=== PATIENT | male | born 1930 | race African-American/Black ===

== ENCOUNTER 2017-04-16 13:39 | Inpatient (IN) | payer OTHER ==
[~2017-04-16] VITALS: Ht 175.3 cm; Wt 93.0 kg
[2017-04-16] MEDS ORDERED: SODIUM CHLORIDE 0.9% 250 ML IV ONE (14:23)
[2017-04-16 15:01] LABS: BASOPHILS % 0.5 % (0.0-2.0); EOSINOPHILS % 10.4 % (0.0-5.0); LYMPHOCYTES % 15.4 % (20.0-50.0); MEAN CORPUSCULAR HEMOGLOBIN 29.5 pg (28.0-32.0); MEAN CORPUSCULAR VOLUME 89.3 fL (80.0-94.0); MEAN PLATELET VOLUME 8.1 fl (7.4-10.4); MONOCYTES % 6.9 % (2.0-8.0); NEUTROPHILS % 66.8 % (40.0-76.0); PLATELET 256 x1000/uL (130-400); RED BLOOD CELL COUNT 2.28 mill/uL (4.7-6.1); RED CELL DISTRIBUTION WIDTH 15.3 % (11.6-14.6)
[2017-04-16 15:03] LABS: INR 1.1
[2017-04-16 15:04] LABS: AMMONIA 23 uMol/L (<32)
[2017-04-16 15:05] LABS: HEMOGLOBIN. 6.7 g/dL (14.0-18.0)
[2017-04-16 15:08] LABS: CARBON DIOXIDE 25 mEq/L (21-32); CHLORIDE 113 mEq/L (98-107); ETHANOL BLOOD < 10 mg/dL
[2017-04-16 15:12] LABS: CREATINE KINASE 63 IU/L (39-308); TROPONIN I 0.05 ng/mL (0.00-0.04)
[2017-04-16 15:55] LABS: CLARITY URINE CLEAR (CLEAR); COLOR URINE YELLOW (YELLOW); GLUCOSE URINE NEGATIVE (NEGATIVE); KETONES URINE NEGATIVE (NEGATIVE); LEUKOCYTE ESTERASE URINE TRACE (NEGATIVE); NITRITE URINE NEGATIVE (NEGATIVE); OCCULT BLOOD URINE NEGATIVE (NEGATIVE); PROTEIN URINE NEGATIVE (NEGATIVE); SPECIFIC GRAVITY URINE 1.025 (1.005-1.030); UROBILINOGEN URINE 0.2 E.U./dL (0.2-1.0)
[2017-04-16 16:08] LABS: T4 FREE 1.59 ng/dL (0.76-1.46)
[2017-04-16 16:16] LABS: *AMPHETAMINES SCREEN URINE NEGATIVE (NEGATIVE); *BARBITURATES SCREEN URINE NEGATIVE (NEGATIVE); *BENZODIAZEPINES SCREEN URINE NEGATIVE (NEGATIVE); *COCAINE SCREEN URINE NEGATIVE (NEGATIVE); CANNABINOID URINE SCREEN NEGATIVE (NEGATIVE); METHADONE URINE SCREEN NEGATIVE (NEGATIVE); OPIATES URINE SCREEN NEGATIVE (NEGATIVE); PHENCYCLIDINE URINE SCREEN NEGATIVE (NEGATIVE)
[2017-04-16] MEDS ORDERED: ACETAMINOPHEN 325MG TABLET PO PRN (18:45)
[2017-04-16] MEDS ORDERED: ONDANSETRON HCL 4MG/2ML VIAL IV PRN (18:45)
[2017-04-16] MEDS ORDERED: IPRATROPIUM/ALBUTEROL 0.5-3(2.5)MG/3ML NEB INH PRN (18:45)
[2017-04-16 19:07] LABS: TOTAL IRON BINDING CAPACITY 271 ug/dL (250-450)
[2017-04-16] MEDS ORDERED: PANTOPRAZOLE SODIUM 40 MG/VIAL IV NR (19:56)
[2017-04-16 20:00] VITALS: BP 149/85
[2017-04-16 20:05] VITALS: BP 149/85
[2017-04-16 22:27] VITALS: BP 136/79
[2017-04-16 22:42] VITALS: BP 118/63
[2017-04-16 23:27] VITALS: BP 126/60
[2017-04-16] MEDS ORDERED: SYN200 PO (23:40)
[2017-04-16] MEDS ORDERED: METO25TA6 PO (23:40)
[2017-04-16] MEDS ORDERED: MULT-1146 PO (23:40)
[2017-04-16] MEDS ORDERED: OMEP20TA80 PO (23:40)
[2017-04-16] MEDS ORDERED: ASPI-1159 PO (23:40)
[2017-04-16] MEDS ORDERED: ATOR-2 PO (23:40)
[2017-04-16] MEDS ORDERED: LISI-604 PO (23:40)
[2017-04-17] VITALS (14 sets, daily range): BP systolic 113–149; BP diastolic 52–82
[2017-04-17] MEDS: IPRATROPIUM/ALBUTEROL 0.5-3(2.5)MG/3ML NEB HHN SCH ×3 (02:44→13:45)
[2017-04-17] MEDS ORDERED: LEVOTHYROXINE SODIUM 175MCG TABLET PO SCH (07:20)
[2017-04-17] MEDS ORDERED: LEVOTHYROXINE SODIUM 200MCG TABLET PO SCH (09:00)
[2017-04-17] MEDS ORDERED: PANTOPRAZOLE SODIUM 40 MG/VIAL IV SCH (09:00)
[2017-04-17 10:51] LABS: HEMATOCRIT. 26.3 % (42.0-52.0); HEMOGLOBIN. 8.6 g/dL (14.0-18.0); MEAN CORPUSCULAR HEMOGLOBIN 28.5 pg (28.0-32.0); MEAN CORPUSCULAR VOLUME 86.5 fL (80.0-94.0); PLATELET 212 x1000/uL (130-400); RED BLOOD CELL COUNT 3.04 mill/uL (4.7-6.1); RED CELL DISTRIBUTION WIDTH 16.1 % (11.6-14.6)
[2017-04-17 11:24] LABS: PLATELET ESTIMATE NORMAL
[2017-04-17] MEDS ORDERED: METOPROLOL TARTRATE 25MG TABLET PO SCH (12:30)
[2017-04-17 16:38] LABS: CLARITY URINE CLEAR (CLEAR); COLOR URINE YELLOW (YELLOW); GLUCOSE URINE NEGATIVE (NEGATIVE); KETONES URINE NEGATIVE (NEGATIVE); LEUKOCYTE ESTERASE URINE TRACE (NEGATIVE); NITRITE URINE NEGATIVE (NEGATIVE); OCCULT BLOOD URINE NEGATIVE (NEGATIVE); PROTEIN URINE NEGATIVE (NEGATIVE); SPECIFIC GRAVITY URINE 1.027 (1.005-1.030); UROBILINOGEN URINE 0.2 E.U./dL (0.2-1.0)
[2017-04-21 10:54] LABS: HEMATOCRIT. 20.4 % (42.0-52.0)
== END 2017-04-17 20:25 | disposition short-term general hospital (02) | DRG 378 ==
LOC: ER 14:40 → 6WST 16:07 → EDBEDREQTM 16:09 → EDBEDREQ 16:09 → ENRESERV 18:47
PROVIDERS: ADMIT Internal Medicine Geriatric Medicine; ATTEND Internal Medicine Geriatric Medicine
PROC: 30233N1 Transfusion of Nonautologous Red Blood Cells into Peripheral Vein, Percutaneous Approach (ICD-10-PCS; principal; 2017-04-16)
DX: K25.4 Chronic or unspecified gastric ulcer with hemorrhage (principal); N39.0 Urinary tract infection, site not specified; E44.1 Mild protein-calorie malnutrition; E11.9 Type 2 diabetes mellitus without complications; K57.91 Diverticulosis of intestine, part unspecified, without perforation or abscess with bleeding; I10 Essential (primary) hypertension; D64.9 Anemia, unspecified; E03.9 Hypothyroidism, unspecified; E05.90 Thyrotoxicosis, unspecified without thyrotoxic crisis or storm; M54.17 Radiculopathy, lumbosacral region; I49.3 Ventricular premature depolarization; Z87.11 Personal history of peptic ulcer disease; Z83.3 Family history of diabetes mellitus; Z68.30 Body mass index [BMI] 30.0-30.9, adult
CPT/HCPCS: 36415; 36430; 70450; 71010; 80053; 80305; 81001; 82140; 82270; 82550; 82962; 83036; 83540; 83550; 83880; 84439; 84443; 84481; 84484; 85007; 85025; 85027; 85610; 86850; 86900; 86920; 93005; 94640; 94664; 96360; 99285; C9113; G0482; J7030; J7050; J7620; P9016